=== PATIENT | male | born 1940 | race Caucasian/White ===

== ENCOUNTER 2018-07-10 10:55 | Emergency (ER) | payer MEDICARE, OTHER ==
[~2018-07-10] VITALS: Ht 170.2 cm; Wt 59.4 kg
[~2018-07-10 10:55] MED LIST: ATENOLOL50 MG PO; CLONIDINE HCL0.2 MG PO; LOVAZA1 GM PO; MATZIM LA240 MG PO; POTASSIUM CHLO20 ME1 PO; PRILOSEC OTC20 MG PO; TAMSULOSIN HCL0.4 MG PO
--- OUTSIDE RECORDS SUMMARY | 2018-07-10 10:58 | XMS REPORT | Clinical Summary ---
Author Author [facility] Address Unknown Phone Unavailable Care Team Providers Care Custom Stock Maker Name Role Phone Balta Almeida MD PCP Allergies No Known Allergies Medications End Date Status Medication Sig Dispensed Refills Start Date Active acetaminophen-codeine Take 1 tablet 0 05/15/ (TYLENOL WITH CODEINE #4) by mouth 7 300-60 mg per tablet every 4 (four) hours as needed. for pain Active amLODIPine (NORVASC) 10 Take 10 mg by 0 05/15/201 mg tablet mouth once 7 daily. Active atenolol (TENORMIN) 50 MG Take 50 mg by 0 30/201 tablet mouth 2 (two) 7 times a day. Active cefuroxime (CEFTIN) 250 Take 250 mg 0 04/10/201 MG tablet by mouth 2 7 (two) times a day. Active ciprofloxacin (CIPRO) 500 TAKE 1 TABLET 0 /17/201 MG tablet BY MOUTH 7 TWICE A DAY FOR 14 DAYS Active MATZIM LA 240 mg 24 hr Take 240 mg 0 /15/201 tablet by mouth once 7 daily. Active finasteride (PROSCAR) 5 Take 5 mg by 0 05/16/201 mg tablet mouth once 7 daily. Active folic acid (FOLVITE) 1 MG Take 2 mg by 0 05/15/201 tablet mouth once 7 daily. Active fluconazole (DIFLUCAN) TAKE 1 TABLET 0 07/09/201 100 MG tablet BY MOUTH ONCE 7 DAILY FOR 14 DAYS Active hydrALAZINE (APRESOLINE) TAKE 1 TABLET 0 05/15/201 10 MG tablet BY MOUTH 7 EVERY 6 HOURS NEEDED FOR SYSTOLIC BLOOD PRESSURE >160 Active levoFLOXacin (LEVAQUIN) Take 250 mg 0 06/11/ 250 MG tablet by mouth once 7 daily. Active linezolid (ZYVOX) 600 mg TAKE 1 TABLET 0 05/24/201 tablet BY MOUTH 7 EVERY 12 HOURS FOR 14 DAYS Active nitrofurantoin, Take 100 mg 0 macrocrystal-monohydrate, by mouth 2 7 (MACROBID) 100 MG capsule (two) times a day. Active nystatin-triamcinolone APPLY TO 2 (MYCOLOG) 100,000-0.1 AFFECTED AREA 7 unit/gram-% ointment TWICE A DAY Active pantoprazole (PROTONIX) Take 40 mg by 0 40 MG EC tablet mouth once 7 daily. Active potassium chloride Take 20 mEq 0 (K-DUR) 20 MEQ CR tablet by mouth once 7 daily. Active sucralfate (CARAFATE) 1 TAKE 1 TABLET 0 gram tablet BY MOUTH 3 7 TIMES A DAY BEFORE MEALS AND AT BEDTIME Active tamsulosin (FLOMAX) 0.4 Take 0.4 mg 0 mg capsule,extended by mouth once 7 release 24hr daily. Active traMADol (ULTRAM) 50 mg TAKE ONE 0 tablet TABLET EVERY 7 SIX HOURS NEEDED FOR PAIN Active triamcinolone (KENALOG) APPLY TO 0 0.1 % paste AFFECTED AREA 7 3 TIME DAILY ON LESIONS FOR 5 DAYS Active valACYclovir (VALTREX) Take 1,000 mg 0 1000 MG tablet by mouth once 7 daily. 07/24/2017 finasteride (PROSCAR) 5 Take 1 tablet 30 tablet 11 mg tablet (5 mg total) 7 by mouth daily. Active Problems Problem Noted Date Benign non-nodular prostatic hyperplasia with lower urinary tract symptoms 07/24/2016 Retention of urine 07/24/2016 Family History Medical History Relation Name Comments Lung cancer Mother Relation Name Status Comments Father Mother Social History Date Tobacco Use Types Packs/Day Years Used Current Every Day Smoker Alcohol Use Drinks/Week oz/Week Comments Yes Sex Assigned at Date Recorded Not on file Industry Job Start Date Occupation Not on file Not on file Not on file Travel End Travel History Travel Start No recent travel history available. Last Filed Vital Signs Not on file Plan of Treatment Health Maintenance Due Date Last Done Comments SHINGLES VACCINES (#1) 1992 65+ PNEUMOCOCCAL VACCINE 04/25/2007 (1 of 2 - PCV13) PNEUMOCOCCAL 04/25/2007 POLYSACCHARIDE VACCINE AGE 65 AND OVER INFLUENZA VACCINE 09/23/2018 Results Not on fileafter 07/09/2017 Insurance Payer Benefit Subscriber ID Type Phone Address Plan / Group MEDICARE MEDICARE xxxxxxxxxx Medicare [place], [place] PART A AND B CIGNA CIGNA xxxxxxxxxxx HMO HMO/POS Advance Directives Patient has advance care planning documents on file. For more information, callie rivas contact: Aba Santos [id number] [facility] [place] [address]
--- OUTSIDE RECORDS SUMMARY | 2018-07-10 10:58 | XMS REPORT ---
Author Author [facility] Address Unknown Phone Unavailable Care Team Providers Care Medical Auditor Name Role Phone Irwin BLANC Unavailable Unavailable Payers Payer Name Policy Type Policy Number Effective Date Expiration Date Problems This patient has no known problems. Allergies, Adverse Reactions, Alerts Allergy Name Allergy Type Status Severity Reaction(s) Onset Date Inactive Date Treating Clinician Comments No Known Allergies DA Active U 2016-04-13 00:00:00 Medications This patient has no known medications. Results Test Description Test Time Test Comments Text Results Atomic Results Result Comments URINALYSIS COMPLETE 2018-03-17 02:52:00 UA COLOR (test code=COLU) LIGHT YELLOW YELLOW UA APPEARANCE (test code=APPU) CLEAR CLEAR UA GLUCOSE DIPSTICK (test code=DGLUU) NEGATIVE mg/dL NEGATIVE UA BILIRUBIN DIPSTICK (test code=BILU) NEGATIVE mg/dL NEGATIVE UA KETONE DIPSTICK (test code=KETU) Negative mg/dL NEGATIVE UA SPECIFIC GRAVITY (test code=SGU) 1.009 1.001-1.035 UA BLOOD DIPSTICK (test code=TONY) 2+ (Moderate) NEGATIVE UA PH DIPSTICK (test code=FRANCESCA) 6.0 5.0-8.0 UA PROTEIN DIPSTICK (test code=PROU) 100 (2+) mg/dL NEGATIVE UA UROBILINIOGEN DIPSTICK (test code=URO) NEGATIVE mg/dL NEGATIVE UA NITRITE DIPSTICK (test code=ISABELLA) NEGATIVE NEGATIVE UA LEUKOCYTE ESTERASE W REFLEX (test code=LEUUR) NEGATIVE NEGATIVE UA WBC (test code=WBCU) 0-5 #/HPF 0-5 UA RBC (test code=RBCU) 0-2 #/HPF 0-5 UA EPITHELIAL CELLS (test code=EPIU) FEW per HPF FEW UA MUCUS (test code=MUCU) FEW #/LPF FEW Urine Source? Clean CatchDRUGS OF ABUSE SCREEN [id number] 02:52:00* Test Item Value Reference Range Comments URN COCAINE (test code=COCAURN) NEGATIVE <300 ng/mL URN CANNABINOIDS (test code=CANNABURN) NEGATIVE <50 ng/mL URN AMPHETAMINE (test code=AMPHETURN) NEGATIVE <1000 ng/mL URN BARBITURATE (test code=BARBITURN) NEGATIVE <200 ng/mL URN BENZODIAZEPINE (test code=BENZOURN) NEGATIVE <200 ng/mL URN OPIATES (test code=OPIATURN) NEGATIVE <300 ng/mL URN PHENCYCLIDINE (PCP) (test code=PHENCURN) NEGATIVE <25 ng/mL URN METHADONE (test code=METHAURN) NEGATIVE <300 ng/mL Urine Source? Clean CatchURINALYSIS [id number] 00:51:00* Test Item Value Reference Range Comments UA COLOR (test code=COLU) LIGHT YELLOW YELLOW UA APPEARANCE (test code=APPU) CLEAR CLEAR UA GLUCOSE DIPSTICK (test code=DGLUU) NEGATIVE mg/dL NEGATIVE UA BILIRUBIN DIPSTICK (test code=BILU) NEGATIVE mg/dL NEGATIVE UA KETONE DIPSTICK (test code=KETU) Negative mg/dL NEGATIVE UA SPECIFIC GRAVITY (test code=SGU) 1.009 1.001-1.035 UA BLOOD DIPSTICK (test code=TONY) 2+ (Moderate) NEGATIVE UA PH DIPSTICK (test code=FRANCESCA) 6.0 5.0-8.0 UA PROTEIN DIPSTICK (test code=PROU) 100 (2+) mg/dL NEGATIVE UA UROBILINIOGEN DIPSTICK (test code=URO) NEGATIVE mg/dL NEGATIVE UA NITRITE DIPSTICK (test code=ISABELLA) NEGATIVE NEGATIVE UA LEUKOCYTE ESTERASE W REFLEX (test code=LEUUR) NEGATIVE NEGATIVE UA WBC (test code=WBCU) 0-5 #/HPF 0-5 UA RBC (test code=RBCU) 0-2 #/HPF 0-5 UA EPITHELIAL CELLS (test code=EPIU) FEW per HPF FEW UA MUCUS (test code=MUCU) FEW #/LPF FEW Urine Source? Clean CatchDRUGS OF ABUSE SCREEN [id number] 00:51:00* Test Item Value Reference Range Comments URN COCAINE (test code=COCAURN) <300 ng/mL URN CANNABINOIDS (test code=CANNABURN) <50 ng/mL URN AMPHETAMINE (test code=AMPHETURN) <1000 ng/mL URN BARBITURATE (test code=BARBITURN) <200 ng/mL URN BENZODIAZEPINE (test code=BENZOURN) <200 ng/mL URN OPIATES (test code=OPIATURN) <300 ng/mL URN PHENCYCLIDINE (PCP) (test code=PHENCURN) <25 ng/mL URN METHADONE (test code=METHAURN) <300 ng/mL Urine Source? Clean CatchBASIC METABOLIC [id number] 21:57:00* Test Item Value Reference Range Comments SODIUM (test code=NA) 141 mmol/L 136-145 POTASSIUM (test code=K) 4.0 mmol/L 3.5-5.1 CHLORIDE (test code=CL) 107.0 mmol/L 98-107 CARBON DIOXIDE (test code=CO2) 27.0 mmol/L 21-32 ANION GAP (test code=GAP) 11.0 10-20 GLUCOSE (test code=GLU) 98 mg/dL 74-106 BLOOD UREA NITROGEN (test code=BUN) 19 mg/dL 7-18 GLOMERULAR FILTRATION RATE (test code=GFR) 59 mL/min >=60 Estimated GFR by using Modified MDRD formula.Chronic kidney disease is defined as either kidney damageor GFR <60 mL/min/1.73 m2 for >3 months. CREATININE (test code=CREAT) 1.20 mg/dL 0.7-1.3 BUN/CREATININE RATIO (test code=BUN/CREA) 15.8 10-20 CALCIUM (test code=CA) 8.5 mg/dL 8.5-10.1 [id number] 21:57:00* Test Item Value Reference Range Comments TROPONIN-I (test code=TROPI) <0.015 ng/mL 0-0.045 [id number] 21:57:00* Test Item Value Reference Range Comments ALCOHOL (test code=ALC) 245 mg/dL 0.0-3.0 INTERPRETIVE DATA NOTE: POSITIVE SCREENING RESULTS SHOULD BE CONSIDERED PRESUMPTIVE.WHEN COLLECTED FOR MEDICAL PURPOSES ONLY. SPECIMEN WILL NOTBE COLLECTED BY CHAIN OF CUSTODY.IF A CONFIRMATION OF POSITIVE RESULTS IS DESIRED, ACONFIRMATION TEST MUST BE REQUESTED BY THE PHYSICIAN AT ANADDITIONAL CHARGE TO THE PATIENT. BASIC METABOLIC [id number] 21:42:00* Test Item Value Reference Range Comments SODIUM (test code=NA) 141 mmol/L 136-145 POTASSIUM (test code=K) 4.0 mmol/L 3.5-5.1 CHLORIDE (test code=CL) 107.0 mmol/L 98-107 CARBON DIOXIDE (test code=CO2) mmol/L 21-32 ANION GAP (test code=GAP) 10-20 GLUCOSE (test code=GLU) mg/dL 74-106 BLOOD UREA NITROGEN (test code=BUN) mg/dL 7-18 GLOMERULAR FILTRATION RATE (test code=GFR) mL/min >=60 CREATININE (test code=CREAT) mg/dL 0.7-1.3 BUN/CREATININE RATIO (test code=BUN/CREA) 10-20 CALCIUM (test code=CA) mg/dL 8.5-10.1 [id number] 21:42:00* Test Item Value Reference Range Comments TROPONIN-I (test code=TROPI) ng/mL 0-0.045 [id number] 21:42:00* Test Item Value Reference Range Comments ALCOHOL (test code=ALC) mg/dL 0-3 CBC W/AUTO [id number] 21:23:00* Test Item Value Reference Range Comments WHITE BLOOD CELL (test code=WBC) 6.4 K/mm3 4.5-12.5 RED BLOOD CELL (test code=RBC) 5.26 mill/mm3 4.0-5.8 HEMOGLOBIN (test code=HGB) 14.5 gram/dL 13.0-17.5 HEMATOCRIT (test code=HCT) 48.2 % 42.0-52.0 MEAN CELL VOLUME (test code=MCV) 91.6 fL 80-98 MEAN CELL HGB (test code=MCH) 27.6 picogram 27.0-33.0 MEAN CELL HGB CONCETRATION (test code=MCHC) 30.1 gram/dL 33.0-36.0 RED CELL DISTRIBUTION WIDTH (test code=RDW) 18.4 % 11.6-16.2 RED CELL DISTRIBUTION WIDTH SD (test code=RDW-SD) 59.9 fL 37.0-51.0 PLATELET COUNT (test code=PLT) 174 K/mm3 150-450 MEAN PLATELET VOLUME (test code=MPV) 9.4 fL 6.7-11.0 NEUTROPHIL % (test code=NT%) 71.6 % 39.0-69.0 IMMATURE GRANULOCYTE % (test code=IG%) 0.5 % 0.0-5.0 LYMPHOCYTE % (test code=LY%) 15.9 % 25.0-55.0 MONOCYTE % (test code=MO%) 9.2 % 0.0-10.0 EOSINOPHIL % (test code=EO%) 2.0 % 0.0-5.0 BASOPHIL % (test code=BA%) 0.8 % 0.0-1.0 NUCLEATED RBC % (test code=NRBC%) 0.0 % 0-0 NEUTROPHIL # (test code=NT#) 4.58 K/mm3 1.8-7.7 IMMATURE GRANULOCYTE # (test code=IG#) 0.03 x10 3/uL 0-0.03 LYMPHOCYTE # (test code=LY#) 1.02 K/mm3 1.0-5.0 MONOCYTE # (test code=MO#) 0.59 K/mm3 0-0.8 EOSINOPHIL # (test code=EO#) 0.13 K/mm3 0.0-0.5 BASOPHIL # (test code=BA#) 0.05 K/mm3 0.0-0.2 NUCLEATED RBC # (test code=NRBC#) 0.00 K/mm3 0.0-0.1 MANUAL DIFF REQUIRED (test code=MDIFF) NO - XR PELVIS 02/24 [id number] 20:33:00 FAX: Tenke,Narinder T DO [place]: B St: PRE Name: VALENTIN HANKINS [facility] : [birth year] Age/S: 77/M [address] Unit #: [id number] Loc: [place] [address] Phys: Narinder Riddle DO Acct: [id number] Dis Date: Status: PRE ER PHONE #: [phone] Exam Date: 03/16/20181954 FAX #: [phone] Reason: fall EXAMS: CPT CODE: [id number] XR PELVIS 1/2 VIEWS 16542 EXAM: Pelvis, one view; INFORMATION: Status post fall; FINDINGS: Diffuse osteopo rosis; otherwise, imaged bones are intact; no evidence of fracture or disl ocation. Status post right hip hemiarthroplasty. Extensive new bone formation around the right femoral neck and exostosis along the lateral as pect of the right iliac wing. Advanced degenerative disc disease of the lo wer lumbar spine. IMPRESSION: 1. No evidence of acute o sseous trauma. 2. Diffuse osteoporosis. 3. Status post right h ip replacement. 4. Exostosis as described. Electro nically Signed by Bret Peralta on 03/16/2018 at 2032 Reported and signed by: Salvador ayala M.D. CC: Narinder Riddle DO Technologist: JUAN RUSHING Trnscrd Date/Time/By: 03/16/2018 (2032) : By: Harpal Orig Print D/ T: S: 03/16/2018 (2035) PAGE 1 Si gned Report - XR CHEST 1 [id number] 20:30:00 FAX: Narinder Riddle DO [place]: B St: PRE Name: Tommy KATELINVALENTIN ZUNIGA [facility] : [birth year] Age/S: 77/M [address] Unit #: [id number] Loc: [place] [address] Phys: Narinder Riddle DO Acct: [id number] Dis Date: Status: PRE ER PHONE #: [phone] Exam Date: 03/16/20181954 FAX #: [phone] Reason: Altered Mental Status EXAMS: CPT CODE: [id number] XR CHEST 1 V 54415 EXAM: Chest x-ray, one view; INFORMATION: Altered mental status; status post fall; I MPRESSION: 1. No evidence of acute cardiothoracic abnormalities. 2. No change compared with a study from August 10, 2017; status post ri ght shoulder arthroplasty and surgical clips in the right axilla. at 2029 Reported and signed b y: Salvador Peralta M.D. CC: Narinder Riddle DO Technologist: JUAN RUSHING RT Trnscrd Date/Time/By: 03/16/2018 (2029) : By: RobertGRW Orig Print D/T: S: 03/16/2018 (2032) PAGE 1 Signed Report - CT C-SPINE W/O [id number] 20:26:00 Name: GIOVANNAVALENTIN BEARDEN [facility] : 1940 Age/S: 77 / M [address] Unit #: [id number] Loc: [place] [address] Phys: Narinder Riddle DO Acct: [id number] Dis Date: Status: PRE ER PHONE #: [phone] Exam Date: 03/16/20182004 FAX #: [phone] Reason: fall EXAMS: CPT CODE: [id number] CT C-SPINE W/O CONTRAST 64701 EXAM: CT of the cervical spine without contrast; INFORMATION: Neck pain after fall; TECHNIQUE AND FINDINGS: CT dose reduction protocol; 2.5 mm axial scans; sagittal and coronal reconstructions. There is scoliosis of the cervical spine with convexity to the right. Otherwise good alignment. Vertebral bodies and posterior elements are intact. The dens is intact. Almost complete obliteration of the disc space C3/4 with minimal anterolisthesis of C3, over a distance of 2 mm. Mild narrowing of the disc space C5/6. Degenerative changes of facet joints bilaterally, left greater than right. Paravertebral soft tissues are unremarkable. IMPRESSION: 1. No evidence of acute osseous trauma. 2. Advanced degenerative disc disease C3/4 and to a lesser degree C5/6. 3. Facet joint arthropathy. at 2025 Reported and signed by: Salvador Peralta M.D. CC: Narinder Riddle DO Technologist:Marni Real RT(R) CTDI: DLP: Trnscb Date/Time: 03/16/2018 (2025) tAVERY Orig Print D/T: S: 03/16/2018 (2028) CTDI: DLP: PAGE 1 Signed Report - CT HEAD/BRAIN W/O [id number] 20:12:00 Name: VALENTIN HEREDIA [facility] : 1940 Age/S: 77 / M [address] [facility] Unit #: [id number] Loc: [place] [address] Phys: Narinder Riddle DO Acct: [id number] Dis Date: Status: PRE ER PHONE #: [phone] Exam Date: 03/16/20182007 FAX #: [phone] Reason: Altered Mental Status EXAMS: CPT CODE: [id number] CT HEAD/BRAIN W/O CONT 52605 EXAM: CT of the head without contrast; INFORMATION: Altered mental status post fall; TECHNIQUE AND FINDINGS: CT dose reduction protocol; 2.5 mm axial scans; There is no evidence of intra or extra-axial hemorrhage, mass lesions or midline shift. 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 These findings are similar to a study from February 20162016. Ventricles are symmetric and are dilated; prominent sulci and basilar cisterns. The calvarium is intact; Paranasal sinuses and mastoid air cells are well aerated. Calcifications of the internal carotid arteries. IMPRESSION: 1. No evidence of intracranial hemorrhage or acute territorial infarction. 2. Stable chronic ischemic changes similar to a study from February 2016. 3. No evidence of skull fracture. at 2011 Reported and signed by: Salvador Peralta M.D. CC: Narinder Riddle DO Technologist:Marni Real RT(R) CTDI: DLP: Trnscb Date/Time: 03/16/2018 (2011) Harpal Orig Print D/T: S: 03/16/2018 (2014) CTDI: DLP: PAGE 1 Signed Report US RENAL RETROPERITONEAL COMP [place] [address] Patient Name: VALENTIN HEREDIA MR #: [id number] : Age/Sex: 76/M Req #: [id number] Adm Physician: DOROTHY KEBEDE MD Ordered by: ZAK PELAEZ MD Report #: [id number] Location: MED/SURG Room/Bed: [facility] Procedure: US/US RENAL RETROPERITONEAL COMP Exam Date: 12/19/16 Exam Time: 1130 REPORT STATUS: Signed PROCEDURE: US RETROPER ITONEAL ( KIDNEY ). COMPARISON: None. INDICATIONS: Evaluate for hydronephrosis FINDINGS: The right kidney measures 10.6 cm in length. The echotexture is increased. There is no evidence of mass or calcification. The collecting system is nondilated. No perinephric fluid collection. The left kidney measures 9.3 cm in length. The echotexture is increased. Ther e is no evidence of mass or calcification. No collecting system dilatation. N o perinephric fluid collection. Bladder: Collapsed around a Webber catheter . Survey images of the liver and spleen demonstrate no focal abnormality. There is no evidence of free fluid. CONCLUSION: Inc reased renal echotexture suggestive of medical renal disease. No evidence of hydronephrosis or renal mass. Dictated by: Jarrett Haynes M.D. on 11/24 at 13:19 Electronically approved by: Jarrett Haynes M.D. on at 13:19 Dictated By: JARRETT HAYNES MD Electronic ally Signed By: JARRETT HAYNES MD on 12/19/161318 Transcribed By: GUILLE on 12/19/161318 COPY TO: ZAK PELAEZ MD CHEST SINGLE (PORTABLE) [place] [address] Patient Name: VALENTIN HEREDIA MR #: [id number] : 1940 Age/Sex: 76/M Req #: [id number] Adm Physician: Ordered by: ADI GABRIEL MD Report #: [id number] Location: ER Room/Bed: Procedure: [id number] DX/CHEST SINGLE (PORTABLE) Ex am Date: 12/16/16 Exam Time: 3205 REPORT STATUS : Signed PROCEDURE: A single AP view of the chest. COMPARISON: Chest x-ray 08/09/2016. INDICATIONS: PRE OP FINDINGS: Lines/tubes: None. Lungs: The lungs are well inflated and clear. There is no evidence of pneumonia or pulmonary edema. Pleura: There is no pleural effusion or pneumothorax. Heart and mediastinum: The heart and the mediastinum are unremarkable. Bones: No acute bony abnormality. Right humeral head arth roplasty. 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 Right axillary surgical clips. IMPRESSION: No acute cardiopulmonary disease. Dictated by: Justice Pardo M.D. on at 17:37 Electronically approved by: Justice Pardo M.D. on 12/16/2016 at 17 :37 Dictated By: JUSTICE PARDO MD 36 Transcribed By: GUILLE on 12/16/161736 COPY TO: ADI GABRIEL MD FEMUR TWO VIEW MINIMUM RIGHT [place] [address] Patient Name: VALENTIN HEREDIA MR #: [id number] : 1940 Age/Sex: 76/M Req #: [id number] Adm Physician: Ordered by: ADI GABRIEL MD Report #: [id number] Location: ER Room/Bed: Procedure: [id number] DX/FEMUR TWO VIEW MINIMUM RIGH T Exam Date: Exam Time: REPORT STATUS: Suki d PROCEDURE: FEMUR TWO VIEW MINIMUM RIGHT COMPARISON: None. I NDICATIONS: FALL FINDINGS: Right total hip arthroplasty. No disloca tion. Acute fracture of the femoral diaphysis. The bones are well-mineralized . The soft-tissues are unremarkable. CONCLUSION: Acute fracture of the right femoral diaphysis. This extends through the right femoral arthr oplasty without fracture of the implant. Dictated by: Justice Pardo M.D. on at 15:06 Electronically approved by: Justice Pardo M.D. on 12/17/19 17 at 15:06 Dictated By: JUSTICE PARDO MD 1506 Transcribed By: GUILLE on 12/16/16 1506 COPY TO: ADI GABRIEL MD
[2018-07-10 11:29] VITALS: BP 170/99
== END 2018-07-10 11:28 | disposition left against medical advice (07) ==
LOC: ER 10:55
DX: R19.7 Diarrhea, unspecified (principal)

== ENCOUNTER → 2019-01-24 | Day surgery (SDC) | payer MEDICARE, OTHER ==
[~2019-01-24] MED LIST changes: +ACETAMINOPHEN/CODEINE 300MG - 30MG TAB ONE; +ACETAMINOPHEN325 M1 PO; +ASPIRIN81 MG PO; +ATENOLOL25 MG PO; +ATORVASTATIN CA20 MG PO; +AUGMENTIN 500-1 EACH PO; +B&O 60MG R/S 60 MG SUPP PR ONE; +BACTRIM DS TAB1 EACH PO; +CEFAZOLIN SOD 1 GM/NS 50ML 50 ML IV ONE; +EPHEDRINE SULFATE INJ 50 MG/10 ML SYR ONE; +FLOMAX0.4 MG PO; +FLUZONE HI180 MCG/04 PO; +FOLIC ACID0.4 MG PO; +IOPAMIDOL 300MG/ML 50ML INFUS..BTL IV ONE; +ISOSORBIDE DINI20 MG PO; +LIDOCAINE HCL 2% LOCAL INJ 5 ML SDV VIAL INJ ONE; +NORVASC5 MG PO; +PROPOFOL IV EMULSION 10 MG/ML 20 ML VIAL ONE; +SEVOFLURANE INHAL SOLN 250 ML PEN BTL ONE; +VITAMIN B-1100 M1 PO
--- NOTE | 2019-01-24 10:59 | Diagnostic Imaging Report ---
Chest, PA and lateral. History: Preoperative examination for renal stone. Comparison: None available. Discussion: The cardiomediastinal silhouette and pulmonary vasculature are within normal limits. The lungs are clear without evidence of consolidation or effusion. Patient is status post right shoulder arthroplasty. IMPRESSION: No radiographic evidence of acute cardiopulmonary abnormality. Signed by: Lauro Parkinson MD on 01/24/2019 10:56 AM
[2019-01-24 11:10] LABS: BASOPHILS # (AUTO) 0.1 (0.0-0.1); EOSINOPHILS # (AUTO) 0.2 (0.0-0.4); EOSINOPHILS % 3.6 % (0.0-6.0); HEMATOCRIT 38.6 % (38.2-49.6); HEMOGLOBIN 12.4 g/dL (14.0-18.0); LYMPHOCYTES % 20.1 % (18.0-39.1); MEAN CORPUSCULAR HEMOGLOBIN 28.8 pg (28-32); MEAN CORPUSCULAR HGB CONC 32.1 g/dL (31-35); MEAN CORPUSCULAR VOLUME 89.8 fL (81-99); MONOCYTES # (AUTO) 0.4 (0.2-0.8); MONOCYTES % 7.4 % (4.4-11.3); NEUTROPHILS # (AUTO) 3.4 (2.1-6.9); NEUTROPHILS % 67.7 % (38.7-80.0); PLATELET COUNT 117 x10e3/uL (140-360); RED CELL DISTRIBUTION WIDTH 13.7 % (11.7-14.4)
[2019-01-24 11:28] LABS: ANION GAP 12.6 mmol/L (8-16); CREATININE, SERUM 1.76 mg/dL (0.72-1.25); POTASSIUM 4.6 mmol/L (3.5-5.1)
[2019-01-24 12:10] LABS: PLATELET ESTIMATE SLIGHTLY DECREASED
[2019-01-24 13:15] VITALS: BP 142/89
--- NOTE | 2019-01-25 00:26 | Operative Report ---
DATE OF PROCEDURE: 01/24/2019 SURGEON: Freeman Diaz MD SERVICE: Urology. PREOPERATIVE DIAGNOSES: 1. Benign prostatic hypertrophy with obstruction. 2. History of urinary retention. 3. Urinary tract infection. 4. Microhematuria. POSTOPERATIVE DIAGNOSES: 1. Benign prostatic hypertrophy with obstruction. 2. History of urinary retention. 3. Urinary tract infection. 4. Microhematuria. OPERATION PERFORMED: 1. Cystoscopy and bilateral retrograde pyelograms under fluoroscopic control. This was done as part of the evaluation of the UTI and microhematuria. 2. Interpretation of x-ray, radiologist not present. 3. Supervision of fluoroscopy, radiologist not present. 4. Transurethral plasma removal of the prostate. STAFF ANESTHETIST: None. ANESTHESIA: General. CLINICAL INDICATION: Note, this is a 78-year-old patient, who went into retention and failed an attempt to eliminate the Webber. The patient was brought for assessment of the lower and upper tract entry and removal of the obstructing prostate. Procedure was discussed with the patient and family, potential benefit and complications discussed, explained and accepted. He knows that he will have at least for a short-time Webber after the procedure. DESCRIPTION OF PROCEDURE AND FINDINGS: After proper level of anesthesia was achieved, the patient was placed in lithotomy position, prepped and draped in a sterile fashion. Urethra inspected, unremarkable, but largely, it is obstructed by enlarged prostate, which is not very large. Bladder was extensively trabeculated with multiple shallow shackles and both ureteral orifices were identified. Cone-tip catheter was used and bilateral retrograde pyelograms were done. The upper tract appeared to be unremarkable. No hydronephrosis and no significant obstruction. Drainage was prompt. Following this, the scope was removed and resectoscope was inserted and systematic removal of the blocking prostatic tissue was done. Following this, any visible bleeding points were carefully coagulated. Following this, bladder was filled up with irrigation fluid and Crede maneuver demonstrated good flow. A 22-Kenyan 30 mL 3-way Webber catheter was inserted and connected to continuous irrigation with water. B and O suppository were inserted and the patient was transferred in satisfactory condition to recovery room. ESTIMATED BLOOD LOSS: Negligible. Postop recommendation, order, and medication given. The patient will be followed. MD EULALIA Gallardo/TOM /[id number]
== END | disposition home or self-care (01) ==
LOC: OR 09:41
PROVIDERS: ATTEND Urology
DX: N40.1 Benign prostatic hyperplasia with lower urinary tract symptoms (principal); N13.8 Other obstructive and reflux uropathy; N39.0 Urinary tract infection, site not specified; N32.89 Other specified disorders of bladder; B19.20 Unspecified viral hepatitis C without hepatic coma; F03.90 Unspecified dementia, unspecified severity, without behavioral disturbance, psychotic disturbance, mood disturbance, and anxiety; I25.10 Atherosclerotic heart disease of native coronary artery without angina pectoris; I10 Essential (primary) hypertension; D64.9 Anemia, unspecified; F17.200 Nicotine dependence, unspecified, uncomplicated
CPT/HCPCS: 36415; 52005; 52601; 71046; 74420; 80048; 85025; J0690; J2001; J2704; Q9967